=== PATIENT | male | born 1975 | race Caucasian/White ===

== ENCOUNTER 2022-05-08 16:07 | Emergency (ER) | payer OTHER ==
[~2022-05-08] VITALS: Ht 188 cm; Wt 95.2 kg
[~2022-05-08 16:07] MED LIST: AMBIEN5 MG PO; NORCO 5-325 TA1 EACH PO; XANAX0.5 MG PO
[2022-05-08] MEDS ORDERED: AMOXICILLIN500 MG PO (18:52)
== END 2022-05-08 19:27 | disposition home or self-care (01) ==
LOC: ED 16:07
DX: J02.9 Acute pharyngitis, unspecified (principal); B96.89 Other specified bacterial agents as the cause of diseases classified elsewhere; Z87.891 Personal history of nicotine dependence
CPT/HCPCS: 36415; 80053; 85025; 87880; 96361; 96365; 96375; 99284-25; J0696; J1100; J1885; J7030

== ENCOUNTER 2024-07-05 17:27 | Emergency (ER) | payer OTHER ==
[~2024-07-05] VITALS: Ht 188 cm; Wt 88.0 kg
[~2024-07-05 17:27] MED LIST changes: +AMOXICILLIN500 MG PO
[2024-07-05 17:55] VITALS: BP 148/92
== END 2024-07-05 17:56 | disposition home or self-care (01) ==
LOC: ED 17:27
DX: K40.90 Unilateral inguinal hernia, without obstruction or gangrene, not specified as recurrent (principal); Z87.891 Personal history of nicotine dependence
CPT/HCPCS: 99283

== ENCOUNTER 2024-09-28 07:36 | Day surgery (SDC) | payer OTHER ==
[~2024-09-28] VITALS: Ht 188 cm; Wt 93.2 kg
[~2024-09-28 07:36] MED LIST changes: +ACETAMINOPHEN500 MG PO; +IBLOOD GLUCOSE TEST STRIP 1 EA TEST VI PRN; +IBUPROFEN600 MG PO; +LACTATED RINGER'S 1,000 ML IV SCH; +LIDOCAINE HCL 1% 5 ML SDV INJ ONE; +MELATONIN5 M2 PO; +MIDAZOLAM HCL 5 MG/5 ML VIAL IV PRN; +OXYCODON-ACETA1 EAC2 PO; +fentaNYL citrate 100 MCG/2 ML VIAL IV PRN
[2024-09-28 08:01] VITALS: BP 125/81
--- NOTE | 2024-09-28 08:08 | NUR ---
S[facility] SIMMONS AND AT [facility].
[2024-09-28] MEDS ORDERED: MIDAZOLAM HCL 5 MG/5 ML VIAL ONE (08:23)
[2024-09-28] MEDS ORDERED: fentaNYL citrate 100 MCG/2 ML VIAL ONE (08:24)
--- NOTE | 2024-09-28 09:35 | NUR ---
09/28/24 0935 Kristen Stewart OXYGEN SATURATION 99% ON 3L VIA NC. OXYGEN IS DISCONTINUED AT THIS TIME.
[2024-09-28 10:24] VITALS: BP 112/89
--- NOTE | 2024-09-28 17:31 | OR ---
[facility] [address] [place], [place] [address] Signed DATE OF OPERATION: 09/28/2024 SURGEON: Andrea Elias MD PREOPERATIVE DIAGNOSIS: Colon screening. POSTOPERATIVE DIAGNOSIS: Small polyps x3. PROCEDURE: Total colonoscopy to cecum with cold morcellation polypectomy x3. ANESTHESIA: Intravenous sedation, fentanyl 100 mcg, Versed 6 mg. INDICATION: This 48-year-old white man is a patient of Dr. Kenton Feliz and was referred for screening colonoscopy. He presented to the emergency room in June of 2024 with a left inguinal hernia, which was quite painful, but was reducible. He has since undergone left inguinal hernia repair by me recently and is doing well from that. He has no family history of colon cancer. No current symptoms of bleeding, diarrhea, or constipation. He is admitted at this time to undergo colonoscopy for screening. He understands the risk of bleeding, infection, and perforation. FINDINGS: The prep was excellent. Complete colonoscopy was undertaken to the cecum without question. He had three small polyps, one of them adenomatous, the other two probably hyperplastic. DESCRIPTION OF PROCEDURE: The patient was brought to the endoscopy suite and placed in lateral decubitus position, given intravenous sedation to the point of slurred speech and nystagmus. Digital rectal examination was normal. An Olympus video colonoscope was passed in the rectum and manipulated throughout the colon ultimately intubating the cecum itself. The prep was remarkably good. The ileocecal valve and appendiceal orifice were normal. The scope was withdrawn from that point. Examination throughout showed no sign of abnormality until the distal sigmoid where two small possibly hyperplastic appearing polyps were noted. These were excised Electronically Signed By: ANDREA ELIAS MD 09/28/24 1731 PATIENT NAME: TIMOTHY KASPER OPERATIVE REPORT DATE OF : 75 REPORT #: [id number] PHYSICIAN: ANDREA ELIAS MD PCP: KENTON FELIZ MD REPORT IS CONFIDENTIAL AND NOT TO BE RELEASED WITHOUT AUTHORIZATION [facility] [address] [place] [id number] Signed with cold morcellation technique. Another similar such polyp, though more likely adenoma was also seen and similarly excised. The scope was withdrawn. A retroflexed view was undertaken, which was normal. The scope was removed. The patient was taken to the recovery room in good condition. CONCLUDING DIAGNOSIS: Polyps x3; one possibly adenoma, other two likely hyperplastic. PLAN: Recommend repeat colonoscopy in 10 years based on current guidelines, sooner if symptoms should develop. He will return to the ongoing care of Dr. Feliz. As an aside, his wound was evaluated in the left groin. In the medial aspect, there was an area of erythema. No evidence of purulence or actual infection. A healing ridge is noted as well. A short course of antibiotic may be advisable under the circumstances and if things should worsen in that way, he will let me know. MD YULIET Méndez/SIMONA /[id number] cc: Kenton Feliz MD Copies: KENTON FELIZ MD ~ Electronically Signed By: ANDREA ELIAS MD 09/28/24 1731 PATIENT NAME: TIMOTHY KASPER OPERATIVE REPORT DATE OF : 75 REPORT #: [id number] PHYSICIAN: ANDREA ELIAS MD PCP: KENTON FELIZ MD REPORT IS CONFIDENTIAL AND NOT TO BE RELEASED WITHOUT AUTHORIZATION
--- NOTE | 2024-09-30 16:48 | PATH ---
[facility] [address] [facility] [place] [place] [address] Signed SPECIMEN(S): A SIGMOID POLYP SPECIMEN(S): B SIGMOID POLYPS SPECIMEN SOURCE: A. SIGMOID POLYP B. SIGMOID POLYPS CLINICAL HISTORY: Screening, polyp FINAL PATHOLOGIC DIAGNOSIS: A. Sigmoid polyp: - Hyperplastic polyp (four fragments). B. Sigmoid polyps: - Hyperplastic polyps (two fragments). JVR:clv MICROSCOPIC EXAMINATION: Histologic sections of all submitted blocks are examined by light microscopy. These findings, together with the gross examination, support the pathologic diagnosis. GROSS DESCRIPTION: A. The specimen, labeled and designated "Granados, sigmoid polyp," is received in formalin and consists of four rivera soft tissue fragments, ranging from 0.1-0.3 cm. Entirely submitted in (A1). B. The specimen, labeled and designated "Granados, sigmoid polyps X2," is received in formalin and consists of two rivera soft tissue fragments, ranging from 0.3 cm. Entirely submitted in (B1). VB (under the direct supervision of a pathologist) The Gross Description was prepared using a voice recognition system. The report was reviewed for accuracy; however, sound-alike word errors, addition and/or deletions may occur. If there is any question about this report, please contact Client Services. PERFORMING LABORATORY: Technical component was performed by [facility], [address] [place] [id number] (CLIA# [id number]). Professional interpretation was performed by [facility], [address] [place] [address], [place] [address] (CLIA#: [id number]). PATIENT NAME: TIMOTHY GRANADOS PATHOLOGY DATE OF : 75 REPORT #: [id number] PHYSICIAN: [facility] PCP: KENTON GUERRERO MD REPORT IS CONFIDENTIAL AND NOT TO BE RELEASED WITHOUT AUTHORIZATION [address] [place], [place] [address] Signed Diagnostician: Edward Salvador MD Pathologist Electronically Signed 09/30/2024 Copies: ~ PATIENT NAME: TIMOTHY GRANADOS PATHOLOGY DATE OF : 75 REPORT #: [id number] PHYSICIAN: [facility] PCP: KENTON GUERRERO MD REPORT IS CONFIDENTIAL AND NOT TO BE RELEASED WITHOUT AUTHORIZATION
== END 2024-09-28 10:33 | disposition home or self-care (01) ==
LOC: DS 07:36
PROVIDERS: ATTEND Surgery
PROC: 0DBN8ZZ Excision of Sigmoid Colon, Via Natural or Artificial Opening Endoscopic (ICD-10-PCS; principal; 2024-09-28 08:30)
DX: Z12.11 Encounter for screening for malignant neoplasm of colon (principal); K63.5 Polyp of colon; Z79.899 Other long term (current) drug therapy
CPT/HCPCS: 99153; G0500; J2250; J3010; J7121